=== PATIENT | female | born 1960 | race American Indian/Alaskan Native ===

== ENCOUNTER 2016-12-01 19:31 | Emergency (ER) | payer OTHER ==
[2016-12-01 20:17] VITALS: BP 125/76
--- NOTE | 2016-12-01 21:10 | Emergency Department Report ---
Upper Extremity - HPI Chief Complaint: Extremity Injury, Upper Stated Complaint: THUMB INJURY Time Seen by Provider: 12/01/16 20:59 Upper Extremity: Left Thumb Occurred When: >5 Days Mechanism: Fall Symptoms: Yes Pain with Movement, Yes Limited Range of Movement (due to pain), No Deformity, No Numbness, No Weakness, No Swelling, No Bruising/Ecchymosis, No Laceration or Abrasion Other History: This is a 56-year-old female that presents with left thumb pain status post fall that occurred last week. Patient stated he was walking up the hill to her driveway when she tripped on her heel and landed on her left thumb. Patient denies any numbness or tingling sensation, deformity, snuffbox tenderness, head trauma, loss consciousness, chest pain or shortness of breath. Patient stated has range of motion with pain. Patient does not seem toxic or ill in appearance. No signs of distress noted. ED Review of Systems ROS: Stated complaint: THUMB INJURY Other details as noted in HPI Constitutional: denies: chills, fever Eyes: denies: eye pain, eye discharge, vision change ENT: denies: ear pain, throat pain Respiratory: denies: cough, shortness of breath, wheezing Cardiovascular: denies: chest pain, palpitations Endocrine: no symptoms reported Gastrointestinal: denies: abdominal pain, nausea, diarrhea Genitourinary: denies: urgency, dysuria, discharge Musculoskeletal: denies: back pain, joint swelling, arthralgia Skin: denies: rash, lesions, change in color, change in hair/nails, pruritus Neurological: denies: headache, weakness, paresthesias Psychiatric: denies: anxiety, depression Hematological/Lymphatic: denies: easy bleeding, easy bruising ED Past Medical Hx - Past Medical History Previous Medical History?: Yes Hx Hypertension: Yes - Surgical History Past Surgical History?: No - Social History Smoking Status: Current Every Day Smoker Substance Use Type: Alcohol - Medications Home Medications: Home Medications Medication Instructions Recorded Confirmed Last Taken Type HYDROcodone/APAP 7.5-325 [Dudley 1 each PO Q8HR PRN #15 tablet 07/09/15 Unknown Rx 7.5/325] Cyclobenzaprine HCl [Flexeril 5 MG 5 mg PO Q8HR PRN #15 tablet 08/11/15 Unknown Rx TAB] Ibuprofen [Motrin 800 MG tab] 800 mg PO Q8HR PRN #30 tablet 08/11/15 Unknown Rx traMADol [Ultram 50 MG tab] 50 mg PO Q6HR PRN #15 tablet 08/11/15 Unknown Rx Ibuprofen [Motrin 600 MG tab] 600 mg PO Q8H PRN 5 Days 12/01/16 Unknown Rx Upper Extremity Exam - Exam General: Vital signs noted. No distress. Alert and acting appropriately. GENERAL: The patient is a well-developed, well-nourished male in no apparent distress. Patient is alert and oriented x3. VITAL SIGNS: Stable HEENT: Head is normocephalic and atraumatic. Extraocular muscles are intact. Pupils are equal, round, and reactive to light and accommodation. Nares appeared normal. Mouth is well hydrated and without lesions. Mucous membranes are moist. Posterior pharynx clear of any exudate or lesions. NECK: Supple. No carotid bruits. No lymphadenopathy or thyromegaly. LUNGS: Clear to auscultation. HEART: Regular rate and rhythm without murmur. ABDOMEN: Soft, nontender, and nondistended. Positive bowel sounds. No hepatosplenomegaly was noted. EXTREMITIES: Without any cyanosis, clubbing, rash, lesions or edema. Left thumb full range of motion with pain. Normal capillary refill. No deformity present. No laceration present. No ecchymosis. No swelling present. Negative snuffbox tenderness. NEUROLOGIC: Cranial nerves II through XII are grossly intact. PSYCHIATRIC: Flat affect, but denies suicidal or homicidal ideations. SKIN: No ulceration or induration present. Head and Torso: No HEENT Abnormality, No Neck Tenderness, No Chest/Lungs Abnormality, No Abdominal Tenderness, No Back Tenderness Shoulder Exam: Yes Normal Range of Motion in Shoulder, No Shoulder Tenderness, No Clavicle Tenderness, No Shoulder Deformity, No AC Joint Tenderness Arm Exam: No Arm/Humerus Tenderness, No Arm Deformity Elbow: No Elbow Tenderness, No Normal Range of Motion in Elbow, No Elbow Deformity Forearm: No Forearm Tenderness, No Forearm Deformity, No Pain with Pronation, No Pain with Supination Wrist: Yes Normal ROM in Wrist, No Wrist Tenderness, No Wrist Deformity, No Snuffbox Tenderness, No Pain with Axial Thumb Compression Hand: Yes Digit Tenderness (left thumb), Yes Normal ROM in Digit(s) (with slight pain), No Hand Tenderness, No Hand Deformity, No Digit(s) Deformity, No Tendon Dysfunction CMS Exam: No Broken Skin, No Normal Distal Pulses, No Normal Capillary Refill, No Normal Distal Sensation ED Course Vital Signs 12/01/16 20:11 Temperature 98.7 F Pulse Rate 75 Blood Pressure 125/76 O2 Sat by Pulse 100 Oximetry ED Medical Decision Making - Medical Decision Making Ed course: This is a 56-year-old female that presents with left thumb pain status post fall that has occurred last week. 1- patient received ibuprofen 600 mg by mouth in ED. 2-x-ray of left thumb obtained: Results: normal 3- I instructed the patient of the x-ray findings. Patient does not have any questions regarding the findings. 4- I instructed the patient to rest, and ice the affected extremity. I also instructed the patient to take ibuprofen 600 mg for pain as needed. 5- I instructed the patient to follow up with her primary care doctor/ orthopedic in 3-5 days or if symptoms worsen. 6- at the time of discharge the patient does not seem toxic or ill in appearance. No signs or distress noted. Patient denies further questions. Patient received discharge treatment and plan of care. Critical care attestation.: If time is entered above; I have spent that time in minutes in the direct care of this critically ill patient, excluding procedure time. ED Disposition Clinical Impression: Strain of thumb, left Qualifiers: Encounter type: initial encounter Qualified Code(s): S66.912A - Strain of unspecified muscle, fascia and tendon at wrist and hand level, left hand, initial encounter Disposition: DISCHARGED TO HOME OR SELFCARE Is pt being admited?: No Does the pt Need Aspirin: No Condition: Stable Instructions: Ibuprofen (By mouth) Additional Instructions: Follow-up with her primary care doctor/orthopedic doctor to 3-5 days or if symptoms worsen Take ibuprofen 600 mg as prescribed as needed Prescriptions: Ibuprofen [Motrin 600 MG tab] 600 mg PO Q8H PRN 5 Days PRN Reason: Pain Referrals: PRIMARY CARE, [Primary Care Provider] - 3-5 Days Forms: Work/School Release Form(ED)
[2016-12-01] MEDS: MOTRIN PO ONE (21:38)
--- NOTE | 2016-12-01 22:04 | XRay Report ---
FINAL REPORT PROCEDURE: XR FINGER(S) 2 LT TECHNIQUE: LEFT 1st finger radiographs, including AP, lateral, and oblique views. HISTORY: Injury; 1ST digit pain COMPARISON: No prior studies are available for comparison. FINDINGS: Fracture (s) and/or Dislocation(s): None . Alignment: Normal. Joint space(s): Normal . Soft tissues: Normal . Bone mineralization: Normal . Foreign bodies: None . IMPRESSION: Normal Examination
== END 2016-12-01 22:19 | disposition home or self-care (01) ==
LOC: ED 19:31
DX: S66.912A Strain of unspecified muscle, fascia and tendon at wrist and hand level, left hand, initial encounter (principal); I10 Essential (primary) hypertension; F17.200 Nicotine dependence, unspecified, uncomplicated; W18.40XA Slipping, tripping and stumbling without falling, unspecified, initial encounter; Y93.01 Activity, walking, marching and hiking; Y99.9 Unspecified external cause status; Y92.89 Other specified places as the place of occurrence of the external cause
CPT/HCPCS: 99283

== ENCOUNTER 2019-05-12 08:28 | Emergency (ER) | payer OTHER ==
[2019-05-12 08:48] VITALS: BP 125/67
--- NOTE | 2019-05-12 10:04 | Emergency Department Report ---
ED Lower Extremity HPI - General Chief Complaint: Extremity Injury, Lower Stated Complaint: (L) ANKLE PAIN Time Seen by Provider: 05/12/19 10:03 Source: patient Mode of arrival: Ambulatory Limitations: No Limitations - History of Present Illness Initial Comments: Patient reports she twisted her left ankle while walking in high heel sandals one week ago. She complains of pain with swelling Complaint: ankle injury (left) Onset/Timin -: week(s) Injury: Ankle: Left Type of Injury: eversion Place: work Severity scale (0 -10): 9 Improves With: immobilization Worsens With: weight bearing Context: other (twisted limb) Other Symptoms: other (none) Associated Symptoms: swelling, able to partially bear weight Treatments Prior to Arrival: cold therapy (once), NSAIDS - Related Data Previous Rx's Medication Instructions Recorded Last Taken Type HYDROcodone/APAP 7.5-325 [Mayer 1 each PO Q8HR PRN #15 tablet 07/09/15 Unknown Rx 7.5/325] Cyclobenzaprine HCl [Flexeril 5 MG 5 mg PO Q8HR PRN #15 tablet 08/11/15 Unknown Rx TAB] Ibuprofen [Motrin 800 MG tab] 800 mg PO Q8HR PRN #30 tablet 08/11/15 Unknown Rx traMADol [Ultram 50 MG tab] 50 mg PO Q6HR PRN #15 tablet 08/11/15 Unknown Rx Ibuprofen [Motrin 600 MG tab] 600 mg PO Q8H PRN 5 Days tablet 12/01/16 Unknown Rx Naproxen [EC-Naprosyn] 500 mg PO BID #20 tablet. 05/12/19 Unknown Rx Allergies Allergy/AdvReac Type Severity Reaction Status Date / Time No Known Allergies Allergy Unverified 07/08/15 20:12 ED Review of Systems ROS: Stated complaint: (L) ANKLE PAIN Other details as noted in HPI Constitutional: denies: chills, fever Eyes: denies: eye pain, eye discharge, vision change ENT: denies: ear pain, throat pain Respiratory: denies: cough, orthopnea, shortness of breath, SOB with exertion, SOB at rest, stridor, wheezing Cardiovascular: denies: chest pain, palpitations Endocrine: no symptoms reported Gastrointestinal: denies: abdominal pain, nausea, diarrhea Genitourinary: denies: urgency, dysuria, discharge Musculoskeletal: arthralgia (left ankle). denies: back pain, joint swelling Skin: denies: rash, lesions Neurological: denies: headache, weakness, paresthesias Psychiatric: denies: anxiety, depression Hematological/Lymphatic: denies: easy bleeding, easy bruising ED Past Medical Hx - Past Medical History Previous Medical History?: Yes Hx Hypertension: Yes - Surgical History Past Surgical History?: Yes Additional Surgical History: Left ankle. - Social History Smoking Status: Current Some Day Smoker Substance Use Type: Alcohol - Medications Home Medications: Home Medications Medication Instructions Recorded Confirmed Last Taken Type HYDROcodone/APAP 7.5-325 [Mayer 1 each PO Q8HR PRN #15 tablet 07/09/15 Unknown Rx 7.5/325] Cyclobenzaprine HCl [Flexeril 5 MG 5 mg PO Q8HR PRN #15 tablet 08/11/15 Unknown Rx TAB] Ibuprofen [Motrin 800 MG tab] 800 mg PO Q8HR PRN #30 tablet 08/11/15 Unknown Rx traMADol [Ultram 50 MG tab] 50 mg PO Q6HR PRN #15 tablet 08/11/15 Unknown Rx Ibuprofen [Motrin 600 MG tab] 600 mg PO Q8H PRN 5 Days tablet 12/01/16 Unknown Rx Naproxen [EC-Naprosyn] 500 mg PO BID #20 tablet. 05/12/19 Unknown Rx ED Physical Exam - General Limitations: No Limitations General appearance: alert, in no apparent distress - Respiratory Respiratory exam: Present: normal lung sounds bilaterally. Absent: respiratory distress, wheezes, rales, rhonchi, stridor, chest wall tenderness, accessory muscle use, decreased breath sounds, prolonged expiratory - Cardiovascular Cardiovascular Exam: Present: regular rate, normal rhythm, normal heart sounds. Absent: bradycardia, tachycardia, irregular rhythm, systolic murmur, diastolic murmur, rubs, gallop - Expanded Lower Extremity Exam Left Hip exam: Present: normal inspection, full ROM Upper Leg exam: Present: normal inspection, full ROM Knee exam: Present: normal inspection, full ROM Lower Leg exam: Present: normal inspection, full ROM Ankle exam: Present: full ROM, tenderness (lateral and medial), swelling. Absent: normal inspection, abrasion, laceration, ecchymosis, deformity, crepidus, dislocation, erythema, anterior draw sign Foot/Toe exam: Present: normal inspection, full ROM Neuro vascular tendon exam: Present: no vascular compromise. Absent: pulse deficit, abnormal cap refill, motor deficit, sensory deficit, tendon deficit, extremity cold to touch, pallor, abnormal 2-point discrimination, decreased fine/light touch, foot drop, peroneal nerve deficit, significant pain with passive ROM of distal joint Gait: Positive: not tested/not observed - Back Exam Back exam: Present: normal inspection, full ROM - Neurological Exam Neurological exam: Present: alert, oriented X3, CN II-XII intact, normal gait, reflexes normal - Psychiatric Psychiatric exam: Present: normal affect, normal mood - Skin Skin exam: Present: warm, dry, intact, normal color. Absent: rash ED Course Vital Signs 05/12/19 08:43 Temperature 97.7 F Pulse Rate 64 Respiratory 18 Rate Blood Pressure 125/67 O2 Sat by Pulse 99 Oximetry - Reevaluation(s) Reevaluation #1: 05/12/19 10:19 radiology studies ordered ED Lower Extremity [facility] - Radiology Data Radiology results: image reviewed LEFT ANKLE, 3 VIEWS INDICATION: pain with swelling/twisted ankle. COMPARISON: None. IMPRESSION: Mild diffuse soft tissue swelling. No acute osseous findings. 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 - Medical Decision Making During the course of ED, all other systems were unremarkable except for documentation in HPI. Radiology studies revealed Mild diffuse soft tissue swelling. No acute osseous findings. 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 Patient was sent home with an shakira wrap, prescription for Naproxen, instructed to follow up with selective referral given at discharge. She verbalized understanding - Differential Diagnosis Left ankle pain, fracture Critical care attestation.: If time is entered above; I have spent that time in minutes in the direct care of this critically ill patient, excluding procedure time. ED Disposition Clinical Impression: Left ankle pain Qualifiers: Chronicity: acute Qualified Code(s): M25.572 - Pain in left ankle and joints of left foot Disposition: DC-01 TO HOME OR SELFCARE Is pt being admited?: No Does the pt Need Aspirin: No Condition: Stable Instructions: Arthralgia (ED) Additional Instructions: Take medication as directed. Wear the shakira wrap for comfort. Follow up with the selective referral given at discharge Prescriptions: Naproxen [EC-Naprosyn] 500 mg PO BID #20 tablet.dr Forms: Work/School Release Form(ED) Time of Disposition: 11:17
--- NOTE | 2019-05-12 11:03 | XRay Report ---
LEFT ANKLE, 3 VIEWS INDICATION: pain with swelling/twisted ankle. COMPARISON: None. IMPRESSION: Mild diffuse soft tissue swelling. No acute osseous findings. Mild osteoarthritic segura es are noted at the ankle joint. Signer Name: Armando Julio Jr, MD Signed: 05/12/2019 10:58 AM Workstation Name: [id number]
== END 2019-05-12 11:57 | disposition home or self-care (01) ==
LOC: ED 08:28
DX: M25.572 Pain in left ankle and joints of left foot (principal); M79.89 Other specified soft tissue disorders; I10 Essential (primary) hypertension; F17.200 Nicotine dependence, unspecified, uncomplicated